=== PATIENT | female | born 1935 | race Caucasian/White ===

== ENCOUNTER 2016-10-06 11:04 | Emergency (ER) | payer MEDICARE, BC ==
[~2016-10-06] VITALS: Ht 165.1 cm; Wt 89.0 kg
[~2016-10-06 11:04] MED LIST: ASPIRIN LOW DOS81 M1 PO; DIGOXIN0.125 MG PO; GLYBURIDE1.25 MG PO; LISINOPRIL10 MG PO; LOPID600 MG PO; METO50TA52 PO
[2016-10-06] MEDS ORDERED: METOPROL TAR25 MG PO (11:16)
[2016-10-06] MEDS ORDERED: METFORMIN500 MG PO (11:17)
[2016-10-06] MEDS ORDERED: OMEPRAZOLE20 M2 PO (11:18)
[2016-10-06] MEDS ORDERED: PRAVASTATIN SOD20 MG PO (11:18)
[2016-10-06 12:00] LABS: HEMATOCRIT 37.8 % (37.0-47.0); HEMOGLOBIN 12.3 g/dl (12.0-16.0); IMMATURE GRANULOCYTES 0.9 % (0.0-1.0); MEAN CELL VOLUME 86.9 fL CALC (80.0-100.0); MEAN CORPUSCULAR HGB 28.3 pG CALC (26.0-32.0); MEAN CORPUSCULAR HGB CONC 32.5 g/L CALC (32.0-36.0); NEUT# 6.21 thou/uL (2.00-7.15); RED BLOOD COUNT 4.35 mill/uL (4.20-5.60); RED CELL DISTRI WIDTH 15.5 % (11.5-15.5)
[2016-10-06 12:06] LABS: ALBUMIN 3.9 g/dL (3.2-5.0); ALKALINE PHOSPHATASE 108 u/l (38-126); ANION GAP 15 (6-22 (CALC)); BILIRUBIN, TOTAL 0.5 mg/dL (0.0-1.4); BUN 21 mg/dL (8-23); BUN/CREATININE RATIO 27 (12-20 (CALC)); CALCIUM 9.3 mg/dL (8.4-10.2); CARBON DIOXIDE 26 mmol/l (22-30); CHLORIDE 103 mmol/l (95-108); CREATININE 0.8 mg/dL (0.5-1.0); GFR > 60 ML/MIN (>=60 (CALC)); GFR FOR AFR.AMER. > 60 ML/MIN (>=60 (CALC)); GLUCOSE 127 mg/dL (82-115); POTASSIUM 4.9 mmol/l (3.5-5.1); SGOT/AST 21 u/l (9-36); SGPT/ALT 26 u/l (11-66); SODIUM 139 mmol/l (137-146); TOTAL PROTEIN 6.9 g/dL (6.3-8.2)
[2016-10-06] MEDS ORDERED: TYLENOL # 31 TA1 PO (14:10)
[2016-10-06] MEDS ORDERED: FLEXERIL5 M1 PO (14:10)
[2016-10-06] MEDS ORDERED: EC-NAPROSYN500 MG PO (14:10)
[2016-10-06 14:16] VITALS: BP 152/77
[2016-10-06 14:17] LABS: URINE BILIRUBIN - DIPSTICK NEGATIVE (NEGATIVE); URINE BLOOD DIPSTICK TRACE-INTACT (NEGATIVE); URINE COLOR YELLOW; URINE GLUCOSE - DIPSTICK NEGATIVE (NEGATIVE); URINE KETONE NEGATIVE (NEGATIVE); URINE NITRITE - DIPSTICK NEGATIVE (Negative); URINE PH 5.5 (4.5-8.0); URINE PROTEIN - DIPSTICK NEGATIVE (NEG-TRACE); URINE SPECIFIC GRAVITY 1.025; URINE UROBILINOGEN - DIPSTICK 0.2 E.U./dL (0.2)
[2016-10-06 14:18] LABS: URINE LEUK ESTERASE MODERATE (NEGATIVE)
[2016-10-06 14:19] LABS: URINE CLARITY TURBID
[2016-10-06 14:27] LABS: URINE BACTERIA FEW hpf; URINE SQUAMOUS EPITHELIAL CELL FEW EPI/hpf (0-FEW); URINE WBC TNTC WBC/hpf (0-5)
== END 2016-10-06 14:27 | disposition home or self-care (01) ==
LOC: ED 11:04
PROVIDERS: Emergency Medicine
DX: S39.012A Strain of muscle, fascia and tendon of lower back, initial encounter (principal); X50.9XXA Other and unspecified overexertion or strenuous movements or postures, initial encounter; Y93.H2 Activity, gardening and landscaping; G89.29 Other chronic pain; M54.9 Dorsalgia, unspecified